=== PATIENT | female | born 1970 | race Caucasian/White ===

== ENCOUNTER 2018-10-19 08:59 | Emergency (ER) | payer MEDICAID ==
[2018-10-19 10:50] LABS: URINE PH (Dip) POC 6.5 (5.0-8.5)
[2018-10-19 10:50] LABS: URINE BLOOD (Dip) POC 2+ (NEGATIVE); URINE GLUCOSE (Dip) POC Negative (NEGATIVE); URINE KETONES (Dip) POC Negative (NEGATIVE); URINE LEUKOCYTE EST (Dip) POC Negative (NEGATIVE); URINE NITRITE (Dip) POC Negative (NEGATIVE); URINE TOTAL PROTEIN POC Trace (NEGATIVE)
[2018-10-19] MEDS: KETOROLAC 30 MG INJ IM (11:15)
== END 2018-10-19 12:09 | disposition home or self-care (01) ==
LOC: FTE 08:59
DX: M54.5 Low back pain (principal)
CPT/HCPCS: 72100; 81003; 81025; 96372; 99284-25